=== PATIENT | male | born 1960 | race Caucasian/White ===

== ENCOUNTER 2016-08-12 20:59 | Emergency (ER) | payer BC ==
[2016-08-12] MEDS ORDERED: DIPHTH,PERTUSS(ACELL),TET 0.5 ML DISP.SYRIN IM ONE (21:19)
[2016-08-12] MEDS ORDERED: CEPHALEXIN MONOHYDRATE 500 MG CAPSULE (UD) PO ONE (21:19)
--- NOTE | 2016-08-12 21:23 | PDOC ---
History of Present Illness - General History Source: Patient Exam Limitations: No Limitations - History of Present Illness Initial Comments: 08/12/16 21:19 A portion of this note was documented by scribe services under my direction. I have reviewed the details of the note, within reason, and agree with the documentation. The case summary and management plan written by me. Procedure note Laceration was cleaned with peroxide and closed with Dermabond patient tolerated well Discussed with patient the probability that he may lose part or all of the flap. Assessment and plan This is a 55-year-old male who comes in complaining of a laceration to his left fifth finger. 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 Patient denies any other injury. Patient is otherwise healthy and his tetanus status is unknown so he was updated with tetanus here in the emergency room Laceration was cleaned and closed with Dermabond Patient started on Keflex as it was a dirty wound. <Larry Fontanez I - Last Filed: 08/12/16 21:23> - General History Source: Patient Exam Limitations: No Limitations - History of Present Illness Initial Comments: 08/12/16 21:24 The patient is a 55 year old male with no significant past medical history, who presents to the ED with a laceration to the 5th digit of the right hand. Patient was using cutting jacki to trim his bushes when he cut himself. Patient is otherwise healthy and has no other complaints. Patient is left hand dominant. Patient does not remember his last tetanus shot. PAST MEDICAL HISTORY: no significant history PAST SURGICAL HISTORY: no significant history FAMILY HISTORY: no pertinent history SOCIAL HISTORY: Pt lives with family and is employed. MEDICATIONS: reviewed ALLERGIES: As per nursing notes ROS General: No fevers or chills, no weakness, no weight loss HEENT: No change in vision. No sore throat,. No ear pain CardioVascular: No chest pain or shortness of breath Respiratory:No cough, or wheezing. Gastrointestinal: no nausea, vomiting, diarrhea or constipation, No rectal bleeding Genitourinary: No dysuria, hematuria, or frequency Musculoskeletal: No joint or muscle pain or swelling Neurologic: No headache, vertigo, dizziness or loss of consciousness Psychiatric: nor depression Skin: laceration to the 5th digit of the right hand. No rashes or easy bruising Endocrine: no increased thirst or abnormal weight change Allergic: no skin or latex allergy All other systems reviewed and normal PE GENERAL: The patient is awake, alert, and fully oriented, in no acute distress. HEAD: Normal with no signs of trauma. EYES: Pupils equal, round and reactive to light, extraocular movements intact, sclera anicteric, conjunctiva clear. EXTREMITIES: Normal range of motion, no edema. NEUROLOGICAL: Normal speech, normal gait. PSYCH: Normal mood, normal affect. SKIN: U shaped flap laceration of the distal phalanx on the medial side of the 5th digit on right hand. Some devascularization of the flap. No active bleeding. Warm, Dry, normal turgor, no rashes or lesions noted. <Charles Nino - Last Filed: 08/12/16 21:24> - General Chief Complaint: Laceration Stated Complaint: FINGER LAC Time Seen by Provider: 08/12/16 21:14 Past History - Past Medical History Other medical history: DENIES - Psycho/Social/Smoking Cessation Hx Anxiety: No Suicidal Ideation: No Smoking History: Current every day smoker Number of Cigarettes Smoked Daily: 20 Information on smoking cessation initiated: Yes 'Breaking Loose' booklet given: 08/12/16 Hx Alcohol Use: No Drug/Substance Use Hx: No Substance Use Type: None <Larry Fontanez I - Last Filed: 08/12/16 21:23> <Charles Nino - Last Filed: 08/12/16 21:24> - Past Medical History Allergies/Adverse Reactions: Allergies Allergy/AdvReac Type Severity Reaction Status Date / Time No Known Allergies Allergy Verified 08/12/16 21:00 Home Medications: Ambulatory Orders NK [No Known Home Medication] 08/12/16 *Physical Exam - Vital Signs Last Vital Signs Temp Pulse Resp BP Pulse Ox 98.1 F 68 18 110/81 100 08/12/16 21:00 08/12/16 21:00 08/12/16 21:00 08/12/16 21:00 08/12/16 21:00 <Larry Fontanez I - Last Filed: 08/12/16 21:23> - Vital Signs Last Vital Signs Temp Pulse Resp BP Pulse Ox 98.1 F 68 18 110/81 100 08/12/16 21:00 08/12/16 21:00 08/12/16 21:00 08/12/16 21:00 08/12/16 21:00 <Charles Nino - Last Filed: 08/12/16 21:24> ED Treatment Course - Medications Given in the ED: ED Medications Discontinued Medications Generic Name Dose Route Start Last Admin Trade Name Bashir PRN Reason Stop Dose Admin Cephalexin HCl 500 mg 08/12/16 21:19 08/12/16 21:23 Keflex - PO 08/12/16 21:20 500 mg ONCE ONE Administration Diphtheria/Tetanus/Acell Pertussis 0.5 ml 08/12/16 21:19 08/12/16 21:23 Boostrix - IM 08/12/16 21:20 0.5 ml ONCE ONE Administration <Charles Nino - Last Filed: 08/12/16 21:24> *DC/Admit/Observation/Transfer - Discharge Dispostion Admit: No <Larry Fontanez I - Last Filed: 08/12/16 21:23> - Attestations Scribe Attestion: 08/12/16 21:24 Documentation prepared by Charles Nino, acting as nuclear medical tech for Larry Fontanez MD. <Charles Nino - Last Filed: 08/12/16 21:24> Diagnosis at time of Disposition: Laceration of finger Qualifiers: Encounter type: initial encounter Qualified Code(s): S61.219A - Laceration without foreign body of unspecified finger without damage to nail, initial encounter - Discharge Dispostion Disposition: HOME Condition at time of disposition: Stable - Patient Instructions Additional Instructions: For the pain you can take Tylenol or Motrin. Keep the glue did area dry for the next 48 hours. Cover with a Band-Aid or dressing when working. Do not use any lotions creams or ointments or petroleum based products on it well as it will cause the glue to come off early. Return to the emergency department immediately with ANY new, persistent or worsening symptoms. Continue any medications as previously prescribed by your physician. You should follow up with your primary doctor as soon as possible regarding today's emergency department visit. . Please make sure your doctor reviews the results of your emergency evaluation. Thank you for coming to the Emergency Department today for your care. It was a pleasure to see you today. Please note that your evaluation is INCOMPLETE until you follow-up with your doctor.
[2016-08-12] MEDS ORDERED: CEPHALEXIN MONOHYDRATE 500 MG CAPSULE (UD) ONE (21:27)
[2016-08-12 21:54] VITALS: BP 110/81; PULSE 68; TEMP 98.1; BMI 25.4
== END 2016-08-12 21:26 | disposition home or self-care (01) ==
LOC: FER 20:59
PROC: 0HQFXZZ Repair Right Hand Skin, External Approach (ICD-10-PCS; principal; 2016-08-12)
PROC: 3E0234Z Introduction of Serum, Toxoid and Vaccine into Muscle, Percutaneous Approach (ICD-10-PCS; 2016-08-12)
DX: S61.216A Laceration without foreign body of right little finger without damage to nail, initial encounter (principal); W26.9XXA Contact with unspecified sharp object(s), initial encounter; Y93.9 Activity, unspecified; Y92.007 Garden or yard of unspecified non-institutional (private) residence as the place of occurrence of the external cause
CPT/HCPCS: 90715; 99283-25

== ENCOUNTER 2016-08-30 11:24 | Emergency (ER) | payer BC ==
[2016-08-30 11:29] VITALS: BP 116/81; PULSE 88; TEMP 98.3; BMI 25.4
--- NOTE | 2016-08-30 11:41 | PDOC ---
History of Present Illness - General Chief Complaint: Laceration Stated Complaint: LEFT FOREHEAD LAC Time Seen by Provider: 08/30/16 11:28 History Source: Patient Exam Limitations: No Limitations - History of Present Illness Initial Comments: 08/30/16 11:41 55y M presents with small laceration to forehead. The pt was playing soft ball and ran into [address] base, he isnt sure what he ran into (possible knee/elbow of other player). Pt has small laceration to L forehead. No loc, neck pain, vision changes, n/v, numbness/tingling/weakness. Tetanus UTD (a few weeks ago for another laceration). Past History - Past Medical History Allergies/Adverse Reactions: Allergies Allergy/AdvReac Type Severity Reaction Status Date / Time No Known Allergies Allergy Verified 08/30/16 11:25 Home Medications: Ambulatory Orders NK [No Known Home Medication] 08/12/16 Other medical history: DENIES - Psycho/Social/Smoking Cessation Hx Anxiety: No Suicidal Ideation: No Smoking History: Current every day smoker Number of Cigarettes Smoked Daily: 20 Information on smoking cessation initiated: Yes 'Breaking Loose' booklet given: 08/30/16 Hx Alcohol Use: No Drug/Substance Use Hx: No Substance Use Type: None Review of Systems - Review of Systems Able to Perform ROS?: Yes Comments:: Constitutional - no reported Fever, Chills, HEENT: no reported vision changes, sore throat Abd/GI: no reported nausea, vomiting, Musculskelatal - no reported back pain, neck pain, joint swelling skin - +laceration to head no reported bruising, erythema, rash neurological: +mild headache no reported numbness, focal weakness, tingling, ataxia, hematologic: no reported anemia, easy bruising, easy bleeding *Physical Exam - Vital Signs Last Vital Signs Temp Pulse Resp BP Pulse Ox 98.3 F 88 17 116/81 100 08/30/16 11:24 08/30/16 11:24 08/30/16 11:24 08/30/16 11:24 08/30/16 11:24 - Physical Exam Comments: 08/30/16 11:45 GENERAL: The patient is awake, alert, and fully oriented, Nontoxic - in no acute distress. HEAD: Normocephalic, 1cm linear superficial laceration to L forehead slightly gaping when spread. no crepitus/stepoffs/ecchymosis, no active bleeding EYES: extraocular movements intact, sclera anicteric, conjunctiva clear. NECK: Normal range of motion, supple no focal tenderness on cervical spine NEUROLOGICAL: No facial assymetry, Normal speech, moving all 4 extremities spontaneously and symmetrically, normal gait. Procedures - Consent Consent obtained: Verbal - Laceration/Wound Repair Left Upper Lateral Head Wound Length: to 2.5 cm Wound Explored: clean Wound's Depth, Shape: irregular Wound Debrided: minimal Wound Repaired With: Dermabond Medical Decision Making - Medical Decision Making 08/30/16 11:46 small superficial 1cm slightly irregular linear laceration area cleansed dermabond applied will dc with supportive management I discussed the physical exam findings, ancillary test results and final diagnoses with the patient. I answered all of the patient's questions. The patient was satisfied with the care received and felt comfortable with the discharge plan and treatment plan. The patient will call their primary care physician within 24 hours to arrange follow-up and will return to the Emergency Department with any new, persistent or worsening symptoms. *DC/Admit/Observation/Transfer Diagnosis at time of Disposition: Forehead laceration Qualifiers: Encounter type: initial encounter Qualified Code(s): S01.81XA - Laceration without foreign body of other part of head, initial encounter - Discharge Dispostion Disposition: HOME Condition at time of disposition: Improved Admit: No - Patient Instructions Printed Discharge Instructions: DI for Laceration Repair With Dermabond Additional Instructions: Keep your cut clean/dry with soap and water. Do not apply any type of lotions/creams/ointments as it will break down the glue sooner. The glue should break down by itself after a few days. After the cut heals, wear sun screen/hat to minimize color difference and improve cosmesis. Print Language: JAPANESE
== END 2016-08-30 11:44 | disposition home or self-care (01) ==
LOC: FER 11:24
PROC: 0HQ1XZZ Repair Face Skin, External Approach (ICD-10-PCS; principal; 2016-08-30)
DX: S01.81XA Laceration without foreign body of other part of head, initial encounter (principal); X58.XXXA Exposure to other specified factors, initial encounter; Y93.64 Activity, baseball; Y92.320 Baseball field as the place of occurrence of the external cause; F17.210 Nicotine dependence, cigarettes, uncomplicated
CPT/HCPCS: 99283-25

== ENCOUNTER 2017-03-25 10:41 | Emergency (ER) | payer BC ==
[2017-03-25 10:52] VITALS: BP 103/66; PULSE 66; TEMP 98.6; BMI 25.7
[2017-03-25] MEDS ORDERED: IBUPROFEN 600 MG TABLET (FP) PO ONE ×2 (10:59→11:01)
--- NOTE | 2017-03-25 11:05 | PDOC ---
History of Present Illness - General Chief Complaint: Edema Stated Complaint: right hand swelling Time Seen by Provider: 03/25/17 10:43 History Source: Patient Exam Limitations: No Limitations - History of Present Illness Initial Comments: 03/25/17 11:09 56 year old male with no past medical history, appears than younger age, right hand dominant, presents with right hand swelling (on the dorsum). The patient works in the water department. Two nights ago, a water main line broke, and the patient was sent to shovel for 14 hours straight. Stated his hands got wet with water (and the temperature outside was frigid). He would frequently go into his truck to warm up his hands, change his gloves, and go out again to shovel. Noted yesterday that he had some mild swelling on the dorsum of the right hand that progressed today. Denies pain, numbness, weakness. Denies injuries. Past History - Past Medical History Allergies/Adverse Reactions: Allergies Allergy/AdvReac Type Severity Reaction Status Date / Time No Known Allergies Allergy Verified 03/25/17 10:42 Home Medications: Ambulatory Orders Ibuprofen 600 mg PO Q6H PRN #20 tablet 03/25/17 COPD: No Other medical history: denies - Suicide/Smoking/Psychosocial Hx Smoking History: Never smoked Number of Cigarettes Smoked Daily: 20 Information on smoking cessation initiated: No 'Breaking Loose' booklet given: 08/30/16 Hx Alcohol Use: No Drug/Substance Use Hx: No Substance Use Type: None Review of Systems - Review of Systems Able to Perform ROS?: Yes Comments:: 03/25/17 11:12 GENERAL/CONSTITUTIONAL: No fever, weakness. HEAD, EYES, EARS, NOSE AND THROAT: No change in vision. No ear pain or discharge. No sore throat. CARDIOVASCULAR: No chest pain or shortness of breath. RESPIRATORY: No cough, wheezing, or hemoptysis. GASTROINTESTINAL: No abdominal pain, nausea, vomiting, diarrhea, or decreased PO intolerance. GENITOURINARY: No dysuria, frequency, or change in urination. MUSCULOSKELETAL: No joint or muscle swelling or pain. No neck or back pain. SKIN: +Right hand swelling NEUROLOGIC: No headache, vertigo, loss of consciousness, or change in strength/ sensation. ENDOCRINE: No increased thirst. No abnormal weight change. HEMATOLOGIC/LYMPHATIC: No anemia, easy bleeding, or history of blood clots. ALLERGIC/IMMUNOLOGIC: No hives or skin allergy. *Physical Exam - Vital Signs Last Vital Signs Temp Pulse Resp BP Pulse Ox 98.6 F 66 19 103/66 99 03/25/17 10:42 03/25/17 10:42 03/25/17 10:42 03/25/17 10:42 03/25/17 10:42 - Physical Exam Comments: 03/25/17 11:13 GENERAL: Awake, alert, and fully oriented, in no acute distress. HEAD: No signs of trauma EYES: PERRLA, EOMI, sclera anicteric, conjunctiva clear ENT: Auricles normal inspection, hearing grossly normal, nares patent NECK: Normal ROM, supple EXTREMITIES: Normal range of motion, no edema. No clubbing or cyanosis. No cords, erythema, or tenderness RUE: 2+ radial pulse. Sensation and strength intact median/radian/ulnar nerve. Mild edema noted along the dorsum of the right hand. Full range of motion of right hand. NEUROLOGICAL: Cranial nerves II through XII grossly intact. Normal speech, normal gait SKIN: Warm, Dry, normal turgor, no rashes or lesions noted. Medical Decision Making - Medical Decision Making 03/25/17 11:17 I suspect that there is some inflammation of the skin 2/2 cold injury. The patient has been reheating his hands and re-freezing his hands from shoveling for 14 hours straight. At this time, he is neurovascularly intact and skin appears overall nontoxic. Has some mild edema, which will require supportive care. Education provided to keep hands warm at all times. Pt verbalizes understanding and agrees with plan. I discussed the physical exam findings, ancillary test results and final diagnoses with the patient. I answered all of the patient's questions. The patient was satisfied with the care received and felt comfortable with the discharge plan and treatment plan. The patient will call their primary care physician within 24 hours to arrange follow-up and will return to the Emergency Department with any new, persistant or worsening symptoms. *DC/Admit/Observation/Transfer Diagnosis at time of Disposition: Hand swelling Qualifiers: Laterality: right Qualified Code(s): M79.89 - Other specified soft tissue disorders Cold injury Qualifiers: Encounter type: initial encounter Qualified Code(s): T69.9XXA - Effect of reduced temperature, unspecified, initial encounter - Discharge Dispostion Disposition: HOME Condition at time of disposition: Stable Admit: No - Prescriptions Prescriptions: Ibuprofen 600 mg PO Q6H PRN #20 tablet PRN Reason: Pain - Referrals Referrals: Amador Garcia MD [Primary Care Provider] - - Patient Instructions Additional Instructions: I suspect that your hand swelling is from the cold. Please keep your hands warm. Take 600 mg ibuprofen every 6 hours as needed for pain. It may take several days before your symptoms improve. - Post Discharge Activity
== END 2017-03-25 11:19 | disposition home or self-care (01) ==
LOC: FER 10:41
DX: M79.89 Other specified soft tissue disorders (principal); T69.9XXA Effect of reduced temperature, unspecified, initial encounter; X58.XXXA Exposure to other specified factors, initial encounter; Y93.89 Activity, other specified; Y92.9 Unspecified place or not applicable; Y99.0 Civilian activity done for income or pay; F17.210 Nicotine dependence, cigarettes, uncomplicated
CPT/HCPCS: 99281-25

== ENCOUNTER 2017-12-31 22:10 | Emergency (ER) | payer BC ==
[2017-12-31 22:17] VITALS: BP 111/76; PULSE 84; TEMP 98.4; BMI 25.7
--- NOTE | 2017-12-31 22:35 | PDOC ---
History of Present Illness - General History Source: Patient Exam Limitations: No Limitations - History of Present Illness Initial Comments: 12/31/17 22:30 A portion of this note was documented by scribe services under my direction. I have reviewed the details of the note, within reason, and agree with the documentation. The case summary and management plan written by me. Assessment and plan: This is a 57-year-old male who was running and hit a fence and went over the fence. Patient did not hit his head did not pass out and denies any injury or pain except to his anterior legs and the bruising of his knees. Patient is able to ambulate with minimal difficulty. Patient on exam does have some contusions and abrasions of his anterior legs as well as knees however there is no bony tenderness of the knees, anterior lower legs. There is no other evidence of injury or trauma. Patient is neurologically intact. Patient discharged home after the abrasions were cleaned and will follow-up with his primary care doctor as needed <Larry Fontanez I - Last Filed: 12/31/17 22:30> - General History Source: Patient Exam Limitations: No Limitations - History of Present Illness Initial Comments: 12/31/17 22:35 The patient is a 57 year old male with no significant past medical history who presents to the ED s/p injury earlier today. The patient states he was playing softball when he ran to catch the ball and hit both of his knees against a three foot fence an hour prior to arrival. Patient went over the fence and landed on his hands. Denies head injury. Patient is able to ambulate with difficulty and upon arrival to the ED is complaining of right knee pain. Denies loss of consciousness. Denies focal numbness/weakness/or tingling. Denies any other symptoms. PAST MEDICAL HISTORY: no significant history PAST SURGICAL HISTORY: no significant history FAMILY HISTORY: no pertinent history SOCIAL HISTORY: Pt lives with family and is employed. MEDICATIONS: reviewed ALLERGIES: As per nursing notes General: No fevers or chills, no weakness, no weight loss HEENT: No change in vision. No sore throat,. No ear pain CardioVascular: No chest pain or shortness of breath Respiratory:No cough, or wheezing. Gastrointestinal: no nausea, vomiting, diarrhea or constipation, No rectal bleeding Genitourinary: No dysuria, hematuria, or frequency Musculoskeletal: + knee pain. Neurologic: No headache, vertigo, dizziness or loss of consciousness Psychiatric: nor depression Skin: No rashes or easy bruising Endocrine: no increased thirst or abnormal weight change Allergic: no skin or latex allergy All other systems reviewed and normal GENERAL: The patient is awake, alert, and fully oriented, in no acute distress. HEAD: Normal with no signs of trauma. EYES: Pupils equal, round and reactive to light, extraocular movements intact, sclera anicteric, conjunctiva clear. EXTREMITIES:+ Bilateral contusion to anterior knees and multiple abrasions to the left anterior howard area. No bony tenderness, full range of motion. Neurovascular intact. NEUROLOGICAL: Normal speech, normal gait. PSYCH: Normal mood, normal affect. SKIN: Warm, Dry, normal turgor, no rashes or lesions noted. <Julio Cesar Calhoun - Last Filed: 12/31/17 22:36> - General Chief Complaint: Injury Stated Complaint: LT KNEE PAIN Time Seen by Provider: 12/31/17 22:15 Past History - Past Medical History COPD: No - Suicide/Smoking/Psychosocial Hx Smoking History: Current every day smoker Number of Cigarettes Smoked Daily: 20 Information on smoking cessation initiated: Yes 'Breaking Loose' booklet given: 12/31/17 Hx Alcohol Use: No Drug/Substance Use Hx: No Substance Use Type: None <Larry Fontanez I - Last Filed: 12/31/17 22:30> <Julio Cesar Calhoun - Last Filed: 12/31/17 22:36> - Past Medical History Allergies/Adverse Reactions: Allergies Allergy/AdvReac Type Severity Reaction Status Date / Time No Known Allergies Allergy Verified 03/25/17 10:42 Home Medications: Ambulatory Orders NK [No Known Home Medication] 12/31/17 *Physical Exam - Vital Signs Last Vital Signs Temp Pulse Resp BP Pulse Ox 98.4 F 84 16 111/76 98 12/31/17 22:13 12/31/17 22:13 12/31/17 22:13 12/31/17 22:13 12/31/17 22:13 <Larry Fontanez I - Last Filed: 12/31/17 22:30> - Vital Signs Last Vital Signs Temp Pulse Resp BP Pulse Ox 98.4 F 84 16 111/76 98 12/31/17 22:13 12/31/17 22:13 12/31/17 22:13 12/31/17 22:13 12/31/17 22:13 <Julio Cesar Calhoun - Last Filed: 12/31/17 22:36> *DC/Admit/Observation/Transfer <Larry Fontanez I - Last Filed: 12/31/17 22:30> - Attestations Scribe Attestion: 12/31/17 22:35 Documentation prepared by Julio Cesar Calhoun, acting as pediatrician/medical doctor for Larry Fontanez MD <Julio Cesar Calhoun - Last Filed: 12/31/17 22:36> Diagnosis at time of Disposition: Abrasion, left lower leg, initial encounter Contusion of knee and lower leg Qualifiers: Encounter type: initial encounter Laterality: left Qualified Code(s): S80.02XA - Contusion of left knee, initial encounter Contusion of knee, right Qualifiers: Encounter type: initial encounter Qualified Code(s): S80.01XA - Contusion of right knee, initial encounter - Discharge Dispostion Disposition: HOME Condition at time of disposition: Stable - Referrals Referrals: ON STAFF,NOT [Primary Care Provider] - - Patient Instructions Additional Instructions: Take ibuprofen 3 tablets 3 times a day with food don't take on an empty stomach take this for 4-5 days as it will help with the muscle soreness and discomfort from the injuries. Clean the abrasions once a day with some peroxide reapply some bacitracin or antibiotic ointment do this for the next 3-4 days. Return to the emergency department immediately with ANY new, persistent or worsening symptoms. Continue any medications as previously prescribed by your physician. You should follow up with your primary doctor as soon as possible regarding today's emergency department visit. . Please make sure your doctor reviews the results of your emergency evaluation. Thank you for coming to the Emergency Department today for your care. It was a pleasure to see you today. Please note that your evaluation is INCOMPLETE until you follow-up with your doctor. - Post Discharge Activity
== END 2017-12-31 22:39 | disposition home or self-care (01) ==
LOC: FER 22:10
DX: S80.812A Abrasion, left lower leg, initial encounter (principal); S80.02XA Contusion of left knee, initial encounter; S80.01XA Contusion of right knee, initial encounter; W22.09XA Striking against other stationary object, initial encounter; Y93.02 Activity, running; Y92.410 Unspecified street and highway as the place of occurrence of the external cause
CPT/HCPCS: 99282-25

== ENCOUNTER 2018-01-30 04:55 | Emergency (ER) | payer BC ==
[2018-01-30 05:15] VITALS: BP 112/75; PULSE 54; TEMP 97.6; BMI 25.7
--- NOTE | 2018-01-30 05:33 | PDOC ---
History of Present Illness - General Chief Complaint: Redness To Affected Area Stated Complaint: FINGER REDNESS Time Seen by Provider: 01/30/18 05:11 History Source: Patient Exam Limitations: No Limitations - History of Present Illness Initial Comments: 01/30/18 05:29 This is a 57-year-old male who said that he got a thorn in his thumb approximately 6 days ago and went to an urgent care center. Patient was given a prescription for antibiotics which he said he did not start and has not taken any of them. Patient now comes in complaining of so increased discomfort and redness of his thumb. He denies any fevers or chills. He denies any other associated symptoms. Patient denies any discharge or pus from the thumb. Patient is otherwise healthy. PAST MEDICAL HISTORY: no significant history PAST SURGICAL HISTORY: no significant history FAMILY HISTORY: no pertinant history SOCIAL HISTORY: Pt lives with family and is employed. MEDICATIONS: reviewed ALLERGIES: As per nursing notes ROS General: No fevers or chills, no weakness, no weight loss HEENT: No change in vision. No sore throat,. No ear pain CardioVascular: No chest pain or shortness of breath Respiratory:No cough, or wheezing. Gastrointestinal: no nausea, vomiting, diarrhea or constipation, No rectal bleeding Genitourinary: No dysuria, hematuria, or frequency Musculoskeletal: . No joint pain or swelling, right thumb discomfort Neurologic: No headache, vertigo, dizziness or loss of consciousness Psychiatric: nor depression Skin: No rashes or easy bruising Endocrine: no increased thirst or abnormal weight change Allergic: no skin or latex allergy All other systems reviewed and normal GENERAL: The patient is awake, alert, and fully oriented, in no acute distress. HEAD: Normal with no signs of trauma. EARS: Bilateral ears are normal with normal external canal. and tympanic membranes. EYES: Pupils equal, round and reactive to light, extraocular movements intact, sclera anicteric, conjunctiva clear. EXTREMITIES: Normal range of motion, no edema. Right thumb: There is some mild erythema of the distal phalanx. There is full range of motion of the joint. There is minimal tenderness on palpation. There is some mild increase in warmth of the distal phalanx only. There is no ascending lymphangitis. NEUROLOGICAL: Normal speech, normal gait. grossly intact PSYCH: Normal mood, normal affect. SKIN: Warm, Dry, normal turgor, no rashes or lesions noted. Assessment and plan : This is a 57-year-old male who has Keflex for a finger injury that was sustained 6 days ago and he never started the antibiotics patient was told to take the antibiotics as prescribed and if he is not better in 48 hours or worsen 24 hours that he should come back or see his primary care doctor. Patient discharged home. Past History - Past Medical History Allergies/Adverse Reactions: Allergies Allergy/AdvReac Type Severity Reaction Status Date / Time No Known Allergies Allergy Verified 03/25/17 10:42 Home Medications: Ambulatory Orders NK [No Known Home Medication] 12/31/17 COPD: No - Suicide/Smoking/Psychosocial Hx Smoking History: Current every day smoker Number of Cigarettes Smoked Daily: 20 Information on smoking cessation initiated: Yes 'Breaking Loose' booklet given: 01/30/18 Hx Alcohol Use: No Drug/Substance Use Hx: No Substance Use Type: None *Physical Exam - Vital Signs Last Vital Signs Temp Pulse Resp BP Pulse Ox 97.6 F 54 L 16 112/75 99 01/30/18 05:11 01/30/18 05:11 01/30/18 05:11 01/30/18 05:11 01/30/18 05:11 *DC/Admit/Observation/Transfer Diagnosis at time of Disposition: Finger infection - Discharge Dispostion Disposition: HOME Condition at time of disposition: Stable Decision to Admit order: No - Referrals - Patient Instructions Additional Instructions: Take your antibiotic that were you were given 6 days ago and never took. You need to take it twice a day. If you are worse and 24 hours or not better in 48 hours you should see her primary care doctor or return to the ED. Also return if you have any fevers, red streaks going up your arm. Return to the emergency department immediately with ANY new, persistent or worsening symptoms. Continue any medications as previously prescribed by your physician. You should follow up with your primary doctor as soon as possible regarding today's emergency department visit. . Please make sure your doctor reviews the results of your emergency evaluation. Thank you for coming to the Emergency Department today for your care. It was a pleasure to see you today. Please note that your evaluation is INCOMPLETE until you follow-up with your doctor. - Post Discharge Activity
== END 2018-01-30 05:34 | disposition home or self-care (01) ==
LOC: FER 04:55
DX: L08.9 Local infection of the skin and subcutaneous tissue, unspecified (principal); F17.210 Nicotine dependence, cigarettes, uncomplicated
CPT/HCPCS: 99281-25

== ENCOUNTER 2019-05-10 16:13 | Emergency (ER) | payer BC ==
[2019-05-10 16:20] VITALS: BP 120/82; PULSE 61; TEMP 98.5; BMI 28.3
--- NOTE | 2019-05-10 16:55 | PDOC ---
History of Present Illness - General Chief Complaint: Pain Stated Complaint: LEFT 3RD TOE RED, SWOLLEN Time Seen by Provider: 05/10/19 16:20 History Source: Patient Exam Limitations: No Limitations - History of Present Illness Initial Comments: 58 yo M with no past medical history presents to the emergency department with 1 day of left third toe swelling. Per the patient, he recently (within the past 1 week) participated in an event requiring participants to run into the [employer]. The patient stated while he was running in he hit his toe against a hard object, causing his toenail to become damaged. He subsequently used a nail clipper and believes he may have cut it too short. Currently, he states he has swelling but without pain. Denies the following: fevers, chills, SOB, chest pain , abdominal pain, dysuria, hematuria, sensation loss, unsteady gait, and diarrhea. Past History - Past Medical History Allergies/Adverse Reactions: Allergies Allergy/AdvReac Type Severity Reaction Status Date / Time No Known Allergies Allergy Verified 05/10/19 16:14 Home Medications: Ambulatory Orders Amox-Tr/K Cl [Augmentin - 875Mg Tablet] 1 tab PO BID #20 tablet 05/10/19 COPD: No Other medical history: pt denies - Psycho Social/Smoking Cessation Hx Smoking History: Former smoker Have you smoked in the past 12 months: Yes Number of Cigarettes Smoked Daily: 20 Information on smoking cessation initiated: No 'Breaking Loose' booklet given: 01/30/18 Hx Alcohol Use: No Drug/Substance Use Hx: No Substance Use Type: None Review of Systems - Review of Systems Able to Perform ROS?: Yes Is the patient limited Bulgarian proficient: No Constitutional: No: Chills, Diaphoresis, Fever, Weakness HEENTM: No: Eye Pain, Ear Pain, Nose Pain, Throat Pain, Mouth Pain Respiratory: No: Cough, Shortness of Breath, Hemoptysis Cardiac (ROS): No: Chest Pain, Lightheadedness, Palpitations, Chest Tightness ABD/GI: No: Constipated, Diarrhea, Nausea, Rectal Bleeding, Vomiting, Tarry Stools : No: Burning, Dysuria, Hematuria Musculoskeletal: Yes: Joint Pain (3rd toe digit). No: Back Pain, Neck Pain Integumentary: No: Bruising, Erythema, Rash Neurological: No: Headache, Numbness, Tingling, Unsteady Gait Psychiatric: No: Change in Appetite Endocrine: No: Unexplained Weight Loss Hematologic/Lymphatic: No: Anemia *Physical Exam - Vital Signs Last Vital Signs Temp Pulse Resp BP Pulse Ox 98.5 F 61 18 120/82 100 05/10/19 16:13 05/10/19 16:13 05/10/19 16:13 05/10/19 16:13 05/10/19 16:13 - Physical Exam General Appearance: Yes: Nourished, Appropriately Dressed. No: Apparent Distress, Intoxicated HEENT: positive: EOMI, KENIA, Normal Voice, Symmetrical, Pharynx Normal, Hearing Grossly Normal. negative: Pale Conjunctivae, Scleral Icterus (R), Scleral Icterus (L), Muffled/Hoarse voice, Pharyngeal Erythema, Tonsillar Exudate, Tonsillar Erythema, Nasal Congestion, Rhinorrhea, Excessive drooling Neck: positive: Trachea midline, Supple. negative: Tender, Lymphadenopathy (R) , Lymphadenopathy (L) Respiratory/Chest: positive: Lungs Clear, Normal Breath Sounds. negative: Chest Tender, Respiratory Distress, Accessory Muscle Use Cardiovascular: positive: Regular Rhythm, Regular Rate, S1, S2. negative: Systolic Murmur Gastrointestinal/Abdominal: positive: Normal Bowel Sounds, Flat, Soft. negative : Tender Lymphatic: negative: Adenopathy Musculoskeletal: positive: Normal Inspection. negative: CVA Tenderness, Vertebral Tenderness Extremity: positive: Normal Capillary Refill, Normal Range of Motion. negative : Normal Inspection (left 3rd toe with erythema and swelling distal to the DIP. no laceration or puncture wound noted. ), Tender Integumentary: positive: Normal Color, Dry, Warm Neurologic: positive: Alert, Normal Mood/Affect Medical Decision Making - Medical Decision Making 58 yo M with no past medical history presents to the emergency department with 1 day of left third toe swelling. Per the patient, he recently (within the past 1 week) participated in an event requiring participants to run into the [employer]. Initial vitals: Initial Vital Signs Temp Pulse Resp BP Pulse Ox 98.5 F 61 18 120/82 100 05/10/19 16:13 05/10/19 16:13 05/10/19 16:13 05/10/19 16:13 05/10/19 16:13 Work up: patient presents with left third toe swelling with associated erythema after cutting the nail which was stubbed while running into the [employer]. likely the patient has cellulitis patient prescribed abx and advised to use warm compresses and elevation Strict return precautions given Discharge - Discharge Information Problems reviewed: Yes Clinical Impression/Diagnosis: Toe infection Condition: Stable Disposition: HOME - Admission No - Additional Discharge Information Prescriptions: Amox-Tr/K Cl [Augmentin - 875Mg Tablet] 1 tab PO BID #20 tablet - Follow up/Referral Referrals: Amador Garcia MD [Primary Care Provider] - - Patient Discharge Instructions Patient Printed Discharge Instructions: DI for Cellulitis -- Adult Additional Instructions: You were seen in the emergency department for the evaluation of your toe pain. Please elevate the foot and use warm compresses on it. Please refrain from working for the next 2 days to allow healing Please use the antibiotics as prescribed. Use motrin as directed on the label Please return to the emergency department if you have worsening symptoms or new concerning symptoms. Please follow up with your primary medical doctor within 1 week after discharge for follow up care and management. Thank you. - Post Discharge Activity Work/Back to School Note: Back to Work
--- NOTE | 2019-05-10 17:03 | PDOC ---
Attending Attestation - Resident Resident Name: RexDevan - ED Attending Attestation I have performed the following: I have examined & evaluated the patient, The case was reviewed & discussed with the resident, I agree w/resident's findings & plan, Exceptions are as noted - HPI HPI: 05/10/19 17:00 Pain and swelling left third toe since this morning. Several days ago, was waiting in the [facility] and stubbed his toe, with injury to his toenail. No fever/chills or other systemic sign of infection. No penetrating wound, puncture or laceration. - Physicial Exam PE: 05/10/19 17:01 Afebrile, normal vital signs Left third toe: Swelling and erythema of the distal phalanx. No skin wound apparent. Nail intact, though he has trimmed away the area that was damaged. - Medical Decision Making 05/10/19 17:02 Assessment: Possible infection of the third toe, early cellulitis Plan: Rest, warm compresses, elevation, and antibiotics. Recheck 2 or 3 days primary physician, or return to ER if condition worsens. Fully ambulatory and in no significant pain or other distress at discharge.
== END 2019-05-10 17:15 | disposition home or self-care (01) ==
LOC: FER 16:13
DX: L08.9 Local infection of the skin and subcutaneous tissue, unspecified (principal); Z87.891 Personal history of nicotine dependence
CPT/HCPCS: 82962; 99283-25

== ENCOUNTER 2019-11-10 19:42 | Emergency (ER) | payer BC ==
[2019-11-10 19:52] VITALS: BP 136/84; PULSE 54; TEMP 98.4; BMI 26.6
[2019-11-10] MEDS ORDERED: DOXYCYCLINE HYCLATE 100 MG CAPSULE PO ONE ×2 (19:58→20:04)
--- NOTE | 2019-11-10 21:12 | PDOC ---
Documentation entered by David Farias SCRIBE, acting as scribe for Marium Rao MD. Marium Rao MD: This documentation has been prepared by the fabioeJarrett Angel, SCRIBE, under my direction and personally reviewed by me in its entirety. I confirm that the documentation accurately reflects all work, treatment, procedures, and medical decision making performed by me. History of Present Illness - General Chief Complaint: Bite Stated Complaint: TICK BITE History Source: Patient Exam Limitations: No Limitations - History of Present Illness Initial Comments: 11/10/19 20:00 The patient is a 58 year old male with no significant past medical history who presents to the ED with a tick bite. The patient states about an hour or so ago he was doing some landscaping and afterwards when he was taking a shower he noticed the tick on his abdomen. The patient was able to remove the tick with a pair of tweezers. The patient was concerned about lyme disease and came into the ED with the tick in a container. The patient noted testing positive for COVID-19 on the 29 of June with his only symptoms being loss of smell and taste. The patient has no complaints here in the ED. Past History - Medical History Allergies/Adverse Reactions: Allergies Allergy/AdvReac Type Severity Reaction Status Date / Time No Known Allergies Allergy Verified 11/10/19 19:47 Home Medications: Ambulatory Orders NK [No Known Home Medication] 11/10/19 COPD: No - Psycho-Social/Smoking History Smoking History: Former smoker Have you smoked in the past 12 months: Yes Number of Cigarettes Smoked Daily: 20 'Breaking Loose' booklet given: 01/30/18 Review of Systems - Review of Systems Able to Perform ROS?: Yes Comments:: 11/10/19 20:07 GENERAL/CONSTITUTIONAL: No fever or chills. No weakness. HEAD, EYES, EARS, NOSE AND THROAT: No change in vision. No ear pain or discharge. No sore throat. CARDIOVASCULAR: No chest pain or shortness of breath. RESPIRATORY: No cough, wheezing, or hemoptysis. GASTROINTESTINAL: No nausea, vomiting, diarrhea or constipation. GENITOURINARY: No dysuria, frequency, or change in urination. MUSCULOSKELETAL: No joint or muscle swelling or pain. No neck or back pain. SKIN: +Small tick bite wound. Non pruritic rash of the feet. NEUROLOGIC: No headache, vertigo, loss of consciousness, or change in strength/sensation. ENDOCRINE: No increased thirst. No abnormal weight change. HEMATOLOGIC/LYMPHATIC: No anemia, easy bleeding, or history of blood clots. ALLERGIC/IMMUNOLOGIC: No hives or skin allergy. *Physical Exam - Physical Exam 11/10/19 20:07 GENERAL: Awake, alert, and fully oriented, in no acute distress HEAD: No signs of trauma EYES: PERRLA, EOMI, sclera anicteric, conjunctiva clear ENT: Auricles normal inspection, hearing grossly normal, nares patent, oropharynx clear without exudates. Moist mucosa NECK: Normal ROM, supple, no lymphadenopathy, JVD, or masses LUNGS: Breath sounds equal, clear to auscultation bilaterally. No wheezes, and no crackles HEART: Regular rate and rhythm, normal S1 and S2, no murmurs, rubs or gallops ABDOMEN: Soft, nontender, normoactive bowel sounds. No guarding, no rebound. No masses EXTREMITIES: Normal range of motion, no edema. No clubbing or cyanosis. No cords, erythema, or tenderness NEUROLOGICAL: Cranial nerves II through XII grossly intact. Normal speech, normal gait SKIN: +Non-bleeding superficial tiny wound to the left periumbilical area with faint surrounding erythema (1cm) without tenderness or edema. No retained foreign body. Warm, Dry, normal turgor. Medical Decision Making - Medical Decision Making As noted above, this 58-year-old man with no significant past medical history presents with history of removing a tick from his abdominal wall earlier this evening. He inquired regarding prophylaxis to help prevent tickborne illness. Exam as noted. On inspection, no evidence of foreign body in area of tick removal. Hibiclens/e thanol solution used to clean the area and bacitracin ointment placed. Doxycycline 200 mg x 1 dose given to the patient here. It was explained to the patient,that although the prophylaxis of doxycycline is effective in lowering the possibility of tickborne illness transmission, he still should be vigilant regarding the appearance of new rash (anywhere on his body) and development of fever, malaise, myalgias over the next few weeks. He should return to the ER or see his doctor if any of these occur. Discharge - Discharge Information Problems reviewed: Yes Clinical Impression/Diagnosis: Tick bite of abdominal wall Qualifiers: Encounter type: initial encounter Qualified Code(s): S30.861A - Insect bite (nonvenomous) of abdominal wall, initial encounter; W57.XXXA - Bitten or stung by nonvenomous insect and other nonvenomous arthropods, initial encounter Condition: Stable Disposition: HOME - Follow up/Referral - Patient Discharge Instructions Patient Printed Discharge Instructions: Protect Yourself from Tickborne Illnesses Additional Instructions: Bacitracin or Neosporin ointment daily to wound for the next few days Return to ER or see your doctor if you develop fever, body aches, rash during the next 2 weeks Return to ER or see your doctor if wound becomes painful, swollen or develops discharge Follow-up with your doctor within the next week - Post Discharge Activity
== END 2019-11-10 20:13 | disposition home or self-care (01) ==
LOC: FER 19:42
DX: S30.861A Insect bite (nonvenomous) of abdominal wall, initial encounter (principal); W57.XXXA Bitten or stung by nonvenomous insect and other nonvenomous arthropods, initial encounter
CPT/HCPCS: 99283-25

== ENCOUNTER 2020-09-18 12:41 | Emergency (ER) | payer BC ==
[2020-09-18 12:48] VITALS: BP 113/67; PULSE 50; TEMP 97.9; BMI 27.4
== END 2020-09-18 14:10 | disposition home or self-care (01) ==
LOC: FER 12:41
DX: L03.116 Cellulitis of left lower limb (principal); L23.7 Allergic contact dermatitis due to plants, except food
CPT/HCPCS: 99281-25

== ENCOUNTER 2020-10-12 17:38 | Emergency (ER) | payer BC ==
[2020-10-12 17:58] VITALS: BP 112/70; PULSE 76; TEMP 98.2; BMI 26.6
[2020-10-12] MEDS ORDERED: predniSONE 20 MG TABLET (UD) PO ONE (18:23)
[2020-10-12] MEDS ORDERED: predniSONE 20 MG TABLET (UD) ONE (18:40)
== END 2020-10-12 18:45 | disposition home or self-care (01) ==
LOC: FER 17:38
DX: R21 Rash and other nonspecific skin eruption (principal)
CPT/HCPCS: 99283-25

== ENCOUNTER 2022-11-05 21:08 | Emergency (ER) | payer BC ==
[2022-11-05 21:22] VITALS: BP 115/77; PULSE 60; RESP 16; TEMP 98.5; BMI 26.6
== END 2022-11-05 21:48 | disposition home or self-care (01) ==
LOC: FER 21:08
DX: L55.0 Sunburn of first degree (principal); M79.604 Pain in right leg; M79.605 Pain in left leg; M79.671 Pain in right foot; M79.672 Pain in left foot
CPT/HCPCS: 99282-25